=== PATIENT | female | born 1970 | race Caucasian/White ===

== ENCOUNTER 2017-10-06 09:55 | Emergency (ER) | payer OTHER ==
[2017-10-06 10:36] VITALS: BP 124/76; PULSE 97; TEMP 99.9; BMI 24.4
[2017-10-06] MEDS ORDERED: IBUPROFEN 600 MG TABLET (FP) PO ONE ×2 (11:42→11:47)
--- NOTE | 2017-10-06 11:53 | PDOC ---
History of Present Illness - General Chief Complaint: Cold Symptoms Stated Complaint: FLU LIKE SYMPTOMS Time Seen by Provider: 10/06/17 11:37 History Source: Patient Exam Limitations: No Limitations - History of Present Illness Initial Comments: 10/06/17 11:47 46 yr female with c/o body aches sore throat fever started yesterday. no pmhx no nvd Timing/Duration: reports: yesterday Severity: reports: moderate Past History - Past Medical History Allergies/Adverse Reactions: Allergies Allergy/AdvReac Type Severity Reaction Status Date / Time No Known Allergies Allergy Verified 10/06/17 10:31 Home Medications: Ambulatory Orders Oseltamivir Phosphate [Tamiflu] 75 mg PO BID #10 capsule 10/06/17 COPD: No DVT: No - Immunization History Immunization Up to Date: Yes - Suicide/Smoking/Psychosocial Hx Smoking History: Never smoked Number of Cigarettes Smoked Daily: 0 Hx Alcohol Use: No Drug/Substance Use Hx: No Substance Use Type: None Hx Substance Use Treatment: No Respiratory Specific PMHX - Complaint Specific PMHX Angina: No Bronchitis: No Pneumonia: No Pulmonary Embolus: No TB (Tuberculosis): No Review of Systems - Review of Systems Able to Perform ROS?: Yes Is the patient limited Armenian proficient: No Constitutional: Yes: Symptoms Reported HEENTM: Yes: Symptoms Reported Respiratory: Yes: Symptoms reported *Physical Exam - Vital Signs Last Vital Signs Temp Pulse Resp BP Pulse Ox 99.9 F H 97 H 16 124/76 99 10/06/17 10:32 10/06/17 10:32 10/06/17 10:32 10/06/17 10:32 10/06/17 10:32 - Physical Exam General Appearance: Yes: Nourished, Appropriately Dressed HEENT: positive: EOMI, JEANNETTE, Pharynx Normal, Nasal Congestion Respiratory/Chest: positive: Lungs Clear, Normal Breath Sounds Cardiovascular: positive: Regular Rhythm, Regular Rate Gastrointestinal/Abdominal: positive: Normal Bowel Sounds, Soft Lymphatic: negative: Adenopathy Musculoskeletal: positive: Normal Inspection Extremity: positive: Normal Capillary Refill, Normal Inspection, Normal Range of Motion Integumentary: positive: Normal Color, Dry, Warm 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, Fully Oriented, Alert, Normal Mood/ Affect, Normal Response, Motor Strength 5/5 ED Treatment Course - Medications Given in the ED: ED Medications Discontinued Medications Generic Name Dose Route Start Last Admin Trade Name Nora PRN Reason Stop Dose Admin Ibuprofen 600 mg 10/06/17 11:42 10/06/17 11:47 Motrin - PO 10/06/17 11:43 600 mg ONCE ONE Administration Medical Decision Making - Medical Decision Making 10/06/17 11:54 flu like symptoms non toxic able to eat and drink will check for flu 10/06/17 12:27 10/06/17 16:16 *DC/Admit/Observation/Transfer Diagnosis at time of Disposition: Influenza - Discharge Dispostion Disposition: HOME - Prescriptions Prescriptions: Oseltamivir Phosphate [Tamiflu] 75 mg PO BID #10 capsule - Referrals Referrals: Taylor Bowers [Primary Care Provider] - - Patient Instructions Printed Discharge Instructions: DI for Influenza -- Adult Additional Instructions: drink pleanty of fluids rest at home and avoid crowds, school, work, large gatherings avoid young babies and elderly persons wash hands often take motrin or tylenol as directed for fever or pain follow with your doctor in 1-2 days for follow up return to ER for any worsening symptoms beber erica cantidad de fluidos descansar en casa y evitar las multitudes, la escuela, el trabajo, las grandes reuniones evitar bebs pequeos y personas mayores lavarse las geoffrey a menudo ruthy motrin o tylenol segn lo indicado para la fiebre o el dolor siga con mcgregor mdico en 1-2 zhao para el seguimiento volver a la manpreet de emergencias por cualquier empeoramiento de los sntomas Print Language: LATVIAN - Post Discharge Activity
== END 2017-10-06 12:34 | disposition home or self-care (01) ==
LOC: JERFT 09:55
DX: J09.X2 Influenza due to identified novel influenza A virus with other respiratory manifestations (principal)
CPT/HCPCS: 87070; 87430; 87804; 99281-25

== ENCOUNTER 2021-09-07 06:31 | Emergency (ER) | payer OTHER ==
[2021-09-07 08:04] VITALS: BP 128/86; PULSE 86; TEMP 98; BMI 26.9
[2021-09-07] MEDS ORDERED: IBUPROFEN 600 MG TABLET (FP) PO ONE ×2 (08:40→09:21)
[2021-09-07] MEDS ORDERED: ALBUTEROL SO4 HFA INHALER IH ONE ×2 (08:40→09:21)
[2021-09-09 18:07] LABS: SARS-CoV-2 NAA Detected (Not Detected)
== END 2021-09-07 12:29 | disposition home or self-care (01) ==
LOC: JER 06:31
DX: J06.9 Acute upper respiratory infection, unspecified (principal)
CPT/HCPCS: 71046-TC-FY; 87804; 93005; 93010; 99285-25; C9803; U0003; U0005

== ENCOUNTER 2021-10-25 11:36 | Emergency (ER) | payer OTHER ==
[2021-10-25 11:50] VITALS: BP 136/76; PULSE 81; TEMP 98; BMI 26.9
[2021-10-25] MEDS ORDERED: ACETAMINOPHEN 500 MG TABLET (FP) PO ONE (12:13)
[2021-10-25] MEDS ORDERED: ACETAMINOPHEN 325 MG TABLET (FP) ONE (12:21)
== END 2021-10-25 12:51 | disposition home or self-care (01) ==
LOC: FER 11:36
DX: M79.672 Pain in left foot (principal)
CPT/HCPCS: 99283-25

== ENCOUNTER 2022-11-14 04:22 | Day surgery (SDC) | payer OTHER ==
[2022-09-04 15:44] VITALS: BMI 31.3
[2022-11-14] MEDS ORDERED: BUPIVACAINE HCL/PF 0.5% (5MG/ML) 10 ML VIAL ONE (11:17)
[2022-11-14] MEDS ORDERED: LIDOCAINE HCL 1%, 10 MG/ML (10ML VIAL) MDV ONE (11:17)
[2022-11-14] MEDS ORDERED: PROPOFOL 20 ML ONE (12:24)
[2022-11-14] MEDS ORDERED: MIDAZOLAM HCL 2 MG/2 ML SINGLE DOSE VIAL ONE (12:24)
[2022-11-14] MEDS ORDERED: SODIUM CHLORIDE 0.9% P/F 10 ML VIAL IJ ONE (12:25)
[2022-11-14] MEDS ORDERED: GLYCOPYRROLATE 0.2 MG/1 ML VIAL ONE (12:25)
[2022-11-14] MEDS ORDERED: LIDOCAINE HCL 2% 100 MG/5 ML DISP.SYRIN ONE (12:25)
[2022-11-14] MEDS ORDERED: ceFAZolin SODIUM 1 GM VIAL ONE (12:25)
[2022-11-14] MEDS ORDERED: PROPOFOL 40 ML ONE (12:30)
[2022-11-14] MEDS ORDERED: ceFAZolin SODIUM 1 GM VIAL IVPB ONE (12:48)
[2022-11-14 16:33] VITALS: RESP 18
[2022-11-14 16:44] VITALS: TEMP 97.9
[2022-11-14 16:59] VITALS: BP 130/72; PULSE 64
== END 2022-11-14 15:10 | disposition home or self-care (01) ==
LOC: JASU-SURG 04:22
PROVIDERS: ATTEND Podiatrist Foot & Ankle Surgery
PROC: 0QBP0Z2 Excision of Left Metatarsal, Sesamoid Bone(s) 1st Toe, Open Approach (ICD-10-PCS; principal; 2022-11-14 13:00)
PROC: 0LQW0ZZ Repair Left Foot Tendon, Open Approach (ICD-10-PCS; 2022-11-14 13:00)
DX: S92.812A Other fracture of left foot, initial encounter for closed fracture (principal); S93.122A Dislocation of metatarsophalangeal joint of left great toe, initial encounter; X58.XXXA Exposure to other specified factors, initial encounter; Y93.9 Activity, unspecified; Y92.9 Unspecified place or not applicable; Y99.9 Unspecified external cause status
CPT/HCPCS: 73630-TC-LT; 76000-TC-FY; 81025; 88304-TC; 88311-TC

== ENCOUNTER 2023-12-07 17:04 | Emergency (ER) | payer OTHER ==
[2023-12-07 17:13] VITALS: BP 125/78; PULSE 90; RESP 18; TEMP 97.7; BMI 31.3
[2023-12-07] MEDS ORDERED: ACETAMINOPHEN INJECTION 100 ML IVPB ONE (18:03)
[2023-12-07] MEDS: ACETAMINOPHEN 1000 MG/100 ML BAG IVPB ONE (18:06)
[2023-12-07 18:08] LABS: EOS % 1.3 % (0-4.5); HEMATOCRIT 44.9 % (32.4-45.2); HEMOGLOBIN 14.8 GM/dL (10.7-15.3); MCH 31.3 pg (25.7-33.7); MCHC 32.9 g/dl (32.0-36.0); MEAN CELL VOLUME 95.2 fl (80-96); MONO % 10.3 % (3.8-10.2); NEUT % 54.4 % (42.8-82.8); PLATELET COUNT 311 10^3/uL (134-434); RBC 4.72 M/mm3 (3.60-5.2); WHITE BLOOD COUNT 6.3 K/mm3 (4.0-10.0)
[2023-12-07 18:10] LABS: URINE APPEARANCE CLOUDY; URINE BILIRUBIN NEGATIVE (NEGATIVE); URINE COLOR YELLOW; URINE GLUCOSE (UA) NEGATIVE (NEGATIVE); URINE KETONE NEGATIVE (NEGATIVE); URINE LEUK ESTERASE NEGATIVE (NEGATIVE); URINE NITRITE NEGATIVE (NEGATIVE); URINE PROTEIN NEGATIVE (NEGATIVE)
[2023-12-07 18:44] LABS: POTASSIUM 4.3 mmol/L (3.5-5.1)
[2023-12-07 18:46] LABS: ALBUMIN 4.1 g/dl (3.4-5.0); BLOOD UREA NITROGEN 18.2 mg/dL (7-18); CALCIUM 9.7 mg/dL (8.5-10.1)
[2023-12-07 18:49] LABS: CREATININE 0.7 mg/dL (0.55-1.3)
[2023-12-07 18:52] LABS: BILIRUBIN,TOTAL 0.4 mg/dL (0.2-1); TOT PROT 7.9 g/dl (6.4-8.2)
[2023-12-07] MEDS ORDERED: KETOROLAC TROMETHAMINE 30 MG/1 ML VIAL ONE (19:34)
[2023-12-07] MEDS ORDERED: diazePAM 5 MG TABLET ONE (19:34)
[2023-12-07] MEDS: KETOROLAC TROMETHAMINE 30 MG/1 ML VIAL IM ONE (19:37)
[2023-12-07] MEDS: KETOROLAC TROMETHAMINE 30 MG/1 ML VIAL IVPUSH ONE (19:37)
[2023-12-07] MEDS: diazePAM 5 MG TABLET PO ONE (19:37)
== END 2023-12-07 23:52 | disposition home or self-care (01) ==
LOC: JER 17:04
PROC: 3E033NZ Introduction of Analgesics, Hypnotics, Sedatives into Peripheral Vein, Percutaneous Approach (ICD-10-PCS; principal; 2023-12-07)
PROC: 3E0333Z Introduction of Anti-inflammatory into Peripheral Vein, Percutaneous Approach (ICD-10-PCS; 2023-12-07)
DX: S39.012A Strain of muscle, fascia and tendon of lower back, initial encounter (principal); R10.32 Left lower quadrant pain; M79.605 Pain in left leg; X58.XXXA Exposure to other specified factors, initial encounter
CPT/HCPCS: 36415; 74177-TC; 76830-TC; 80053; 81003; 84703; 85025; 87086; 99285-25; J0131; Q9967